=== PATIENT | female | born 1960 | race Caucasian/White ===

== ENCOUNTER 2019-01-14 07:05 | Inpatient (IN) | payer OTHER ==
[~2019-01-14] VITALS: Ht 170.2 cm; Wt 148.5 kg
[2019-01-20 17:48] VITALS: BP 118/76
== END 2019-01-20 23:24 | disposition home or self-care (01) | DRG 308 ==
LOC: ED 09:18 → EDIP 09:57 → 5SO 13:24
PROVIDERS: ADMIT Internal Medicine; ATTEND Internal Medicine
DX: I48.91 Unspecified atrial fibrillation (principal); I50.41 Acute combined systolic (congestive) and diastolic (congestive) heart failure; D68.69 Other thrombophilia; Z68.43 Body mass index [BMI] 50.0-59.9, adult; E03.9 Hypothyroidism, unspecified; D75.1 Secondary polycythemia; E66.01 Morbid (severe) obesity due to excess calories; G25.0 Essential tremor; I95.9 Hypotension, unspecified; E83.42 Hypomagnesemia; E87.6 Hypokalemia; I47.2 Ventricular tachycardia; Z79.01 Long term (current) use of anticoagulants; Z79.899 Other long term (current) drug therapy; Z82.49 Family history of ischemic heart disease and other diseases of the circulatory system; Z83.3 Family history of diabetes mellitus; Z90.49 Acquired absence of other specified parts of digestive tract; Z88.0 Allergy status to penicillin
CPT/HCPCS: 36415; 71045; 78452; 80048; 80053; 80162; 83735; 83880; 84100; 84439; 84443; 84484; 85025; 85520; 85610; 85730; 93005; 93017; 93922; 96365; 96366; 96372; 96375; C8929; G0378; J1644; J1650; J1940; J2785; J3475; Q9957; A9502; C9898; J1160

== ENCOUNTER 2019-01-26 13:00 | Outpatient (CLI) | payer OTHER ==
[~2019-01-26 13:00] MED LIST: APIX5TAB PO; ASPI-496 PO; CEPH-376 PO; DIGO125T PO; DILT120C11 PO; FURO20TA3 PO; IBUP-1222 PO; METO-93 PO; POTA10CA PO
[2019-03-20] MEDS ORDERED: POTA90TA2 PO (15:20)
[2019-03-20] MEDS ORDERED: Magnesium PO (15:20)
[2019-03-20] MEDS ORDERED: LISI5TAB7 PO (16:32)
== END 2019-01-26 23:59 | disposition home or self-care (01) ==
LOC: WOUND 13:00
PROVIDERS: ATTEND Internal Medicine
DX: I87.312 Chronic venous hypertension (idiopathic) with ulcer of left lower extremity (principal); L97.222 Non-pressure chronic ulcer of left calf with fat layer exposed; L97.212 Non-pressure chronic ulcer of right calf with fat layer exposed; I87.331 Chronic venous hypertension (idiopathic) with ulcer and inflammation of right lower extremity; B96.5 Pseudomonas (aeruginosa) (mallei) (pseudomallei) as the cause of diseases classified elsewhere; I50.41 Acute combined systolic (congestive) and diastolic (congestive) heart failure; E03.9 Hypothyroidism, unspecified; E66.01 Morbid (severe) obesity due to excess calories; I48.91 Unspecified atrial fibrillation; Z79.01 Long term (current) use of anticoagulants; Z79.899 Other long term (current) drug therapy; Z68.42 Body mass index [BMI] 45.0-49.9, adult; Z88.0 Allergy status to penicillin; Z90.49 Acquired absence of other specified parts of digestive tract
CPT/HCPCS: 97597; 99215

== ENCOUNTER 2019-02-02 13:15 | Outpatient (CLI) | payer OTHER | END 2019-02-02 23:59 | disposition home or self-care (01) | LOC: WOUND 13:15 | PROVIDERS: ATTEND Internal Medicine | DX: I87.312 Chronic venous hypertension (idiopathic) with ulcer of left lower extremity (principal); L97.222 Non-pressure chronic ulcer of left calf with fat layer exposed; I87.331 Chronic venous hypertension (idiopathic) with ulcer and inflammation of right lower extremity; L97.212 Non-pressure chronic ulcer of right calf with fat layer exposed; B96.5 Pseudomonas (aeruginosa) (mallei) (pseudomallei) as the cause of diseases classified elsewhere; I50.41 Acute combined systolic (congestive) and diastolic (congestive) heart failure; E03.9 Hypothyroidism, unspecified; E66.01 Morbid (severe) obesity due to excess calories; I48.91 Unspecified atrial fibrillation; Z79.01 Long term (current) use of anticoagulants; Z79.899 Other long term (current) drug therapy; Z68.42 Body mass index [BMI] 45.0-49.9, adult; Z88.0 Allergy status to penicillin; Z90.49 Acquired absence of other specified parts of digestive tract | CPT/HCPCS: 29581; 97597 ==

== ENCOUNTER 2019-02-09 08:17 | Outpatient (CLI) | payer OTHER | END 2019-02-09 23:59 | disposition home or self-care (01) | LOC: WOUND 08:17 | PROVIDERS: ATTEND Internal Medicine | DX: I87.312 Chronic venous hypertension (idiopathic) with ulcer of left lower extremity (principal); L97.222 Non-pressure chronic ulcer of left calf with fat layer exposed; I87.331 Chronic venous hypertension (idiopathic) with ulcer and inflammation of right lower extremity; L97.212 Non-pressure chronic ulcer of right calf with fat layer exposed; B96.5 Pseudomonas (aeruginosa) (mallei) (pseudomallei) as the cause of diseases classified elsewhere; I50.41 Acute combined systolic (congestive) and diastolic (congestive) heart failure; E03.9 Hypothyroidism, unspecified; E66.01 Morbid (severe) obesity due to excess calories; I48.91 Unspecified atrial fibrillation; Z79.01 Long term (current) use of anticoagulants; Z79.899 Other long term (current) drug therapy; Z68.42 Body mass index [BMI] 45.0-49.9, adult; Z88.0 Allergy status to penicillin; Z90.49 Acquired absence of other specified parts of digestive tract | CPT/HCPCS: 97597 ==

== ENCOUNTER 2019-02-16 08:15 | Outpatient (CLI) | payer OTHER | END 2019-02-16 23:59 | disposition home or self-care (01) | LOC: WOUND 08:15 | PROVIDERS: ATTEND Internal Medicine | DX: I87.312 Chronic venous hypertension (idiopathic) with ulcer of left lower extremity (principal); L97.222 Non-pressure chronic ulcer of left calf with fat layer exposed; I87.331 Chronic venous hypertension (idiopathic) with ulcer and inflammation of right lower extremity; L97.212 Non-pressure chronic ulcer of right calf with fat layer exposed; B96.5 Pseudomonas (aeruginosa) (mallei) (pseudomallei) as the cause of diseases classified elsewhere; I50.41 Acute combined systolic (congestive) and diastolic (congestive) heart failure; E03.9 Hypothyroidism, unspecified; E66.01 Morbid (severe) obesity due to excess calories; I48.91 Unspecified atrial fibrillation; Z79.01 Long term (current) use of anticoagulants; Z79.899 Other long term (current) drug therapy; Z68.42 Body mass index [BMI] 45.0-49.9, adult; Z88.0 Allergy status to penicillin; Z90.49 Acquired absence of other specified parts of digestive tract | CPT/HCPCS: 97597 ==

== ENCOUNTER → 2019-06-17 | Outpatient (CLI) | payer OTHER ==
[~2019-06-17] MED LIST changes: +LISI5TAB7 PO; +Magnesium PO; +POTA90TA2 PO
== END | disposition home or self-care (01) ==
LOC: CVU 08:57
PROVIDERS: ATTEND Registered Nurse
CPT/HCPCS: 93306

== ENCOUNTER 2019-07-15 09:00 | Inpatient (IN) | payer OTHER ==
[~2019-07-15] VITALS: Ht 170.2 cm; Wt 127.0 kg
[2019-07-15 09:32] VITALS: BP 111/67
[2019-07-15] MEDS ORDERED: DIPHENHYDRAMINE 50 MG CAPSULE PO PRN (10:30)
[2019-07-15 11:17] LABS: CHLORIDE 111 mmol/L (98-107)
[2019-07-15] MEDS: AMIODARONE 200 MG TABLET PO SCH ×3 (11:26→21:28)
[2019-07-15 11:31] LABS: ANION GAP 9 mmol/L (5-15); CHOL/HDL RATIO 4.4; CHOLESTEROL, TOTAL 177 mg/dL (140-239); CREATININE 0.64 mg/dL (0.55-1.02); FREE T4 (FREE THYROXINE) 0.91 ng/dL (0.76-1.46); HDL CHOL % 23 % (28-40); HDL CHOLESTEROL (DIRECT) 40 mg/dL (40-60); LDL CHOLESTEROL,CALCULATED 102 mg/dL (54-169); LDL/HDL RATIO 2.6 (0.5-3.0); TRIGLYCERIDES 173 mg/dL (50-200); VLDL CHOLESTEROL 35 mg/dL (0-25)
[2019-07-15 13:28] VITALS: BP 110/74
[2019-07-15] MEDS: ACETAMINOPHEN 325 MG TABLET PO PRN ×2 (15:05→21:28)
[2019-07-15 16:09] VITALS: BP 114/74
[2019-07-15 18:48] VITALS: BP 105/68
[2019-07-15] MEDS: APIXABAN 5 MG TABLET PO SCH (21:28)
[2019-07-15] MEDS: SODIUM CHLORIDE FLUSH 10ML SYR IVF SCH (21:29)
[2019-07-16 01:09] VITALS: BP 108/67
[2019-07-16] MEDS: ACETAMINOPHEN 325 MG TABLET PO PRN ×2 (06:20→17:15)
[2019-07-16 07:00] VITALS: BP 108/84
[2019-07-16] MEDS: APIXABAN 5 MG TABLET PO SCH ×2 (09:39→21:23)
[2019-07-16] MEDS: AMIODARONE 200 MG TABLET PO SCH ×3 (09:39→21:24)
[2019-07-16] MEDS: MAGNESIUM OXIDE 400 MG TABLET PO SCH (09:39)
[2019-07-16] MEDS: SODIUM CHLORIDE FLUSH 10ML SYR IVF SCH ×2 (09:39→21:24)
[2019-07-16 14:35] VITALS: BP 131/81
[2019-07-16 20:06] VITALS: BP 111/78
[2019-07-17 01:17] VITALS: BP 110/70
[2019-07-17] MEDS: ACETAMINOPHEN 325 MG TABLET PO PRN (06:00)
[2019-07-17 07:35] VITALS: BP 124/75
[2019-07-17] MEDS: APIXABAN 5 MG TABLET PO SCH (09:12)
[2019-07-17] MEDS: AMIODARONE 200 MG TABLET PO SCH ×2 (09:12→15:52)
[2019-07-17] MEDS: MAGNESIUM OXIDE 400 MG TABLET PO SCH (09:12)
[2019-07-17] MEDS: SODIUM CHLORIDE FLUSH 10ML SYR IVF SCH (09:25)
[2019-07-17] MEDS ORDERED: PROPOFOL 10 MG/ML, 20ML ONE (11:08)
[2019-07-17] MEDS ORDERED: AMIO200T42 PO (13:46)
[2019-07-17 14:13] VITALS: BP 101/67
[2019-07-17 14:50] VITALS: BP 122/81
== END 2019-07-17 16:52 | disposition home or self-care (01) | DRG 309 ==
LOC: 5SO 09:00 → DCLOUNGE 07-17 16:34
PROVIDERS: ADMIT Internal Medicine Cardiovascular Disease; ATTEND Internal Medicine Cardiovascular Disease
PROC: 5A2204Z Restoration of Cardiac Rhythm, Single (ICD-10-PCS; principal; 2019-07-17 11:00)
DX: I48.0 Paroxysmal atrial fibrillation (principal); D68.69 Other thrombophilia; Z68.41 Body mass index [BMI] 40.0-44.9, adult; I50.42 Chronic combined systolic (congestive) and diastolic (congestive) heart failure; Z88.0 Allergy status to penicillin; E03.9 Hypothyroidism, unspecified; E66.9 Obesity, unspecified; I27.20 Pulmonary hypertension, unspecified; I34.0 Nonrheumatic mitral (valve) insufficiency; K02.9 Dental caries, unspecified; Z87.891 Personal history of nicotine dependence; I25.5 Ischemic cardiomyopathy
CPT/HCPCS: 36415; 71046; 80048; 80061; 84439; 84443; 85014; 85018; 92960; 93005; G0378; J2704

== ENCOUNTER 2019-08-12 13:15 | Outpatient (CLI) | payer OTHER ==
[~2019-08-12 13:15] MED LIST changes: +AMIO200T42 PO; -DIGO125T PO; +DIGO125T85 PO
== END 2019-08-12 23:59 | disposition home or self-care (01) ==
LOC: CVU 13:15
PROVIDERS: ATTEND Registered Nurse
DX: I08.0 Rheumatic disorders of both mitral and aortic valves (principal); I42.9 Cardiomyopathy, unspecified
CPT/HCPCS: 93306

== ENCOUNTER → 2020-12-19 | Outpatient (CLI) | payer OTHER ==
[~2020-12-19] MED LIST changes: +SOTA120T14 PO
== END | disposition home or self-care (01) ==
LOC: CFH 10:16
PROVIDERS: ATTEND Internal Medicine Cardiovascular Disease
DX: I08.0 Rheumatic disorders of both mitral and aortic valves (principal); I10 Essential (primary) hypertension; I48.91 Unspecified atrial fibrillation
CPT/HCPCS: 93306